=== PATIENT | female | born 1965 | race Caucasian/White ===

== ENCOUNTER → 2017-08-09 | Outpatient (CLI) | payer OTHER ==
[~2017-08-09] MED LIST: ATEN50TA PO; HYDR-3454 PO
== END ==
LOC: LAB 12:08
PROVIDERS: ATTEND Family Medicine
DX: B34.9 Viral infection, unspecified (principal)
CPT/HCPCS: 87804

== ENCOUNTER 2020-01-07 21:23 | Observation (INO) | payer OTHER ==
[~2020-01-07] VITALS: Ht 155 cm; Wt 96.0 kg
[~2020-01-07 21:23] MED LIST changes: -HYDR-3454 PO; +HYDR-3455 PO
--- NOTE | 2020-01-07 21:35 | ED GI ---
General Chief Complaint: Abdominal/GI Problems Stated Complaint: RLQ PAIN Source of Information: Patient Exam Limitations: No Limitations History of Present Illness Date Seen by Provider: Jan 07, 2020 Time Seen by Provider: 21:33 Initial Comments To ER with right lower quadrant abdominal pain that began last night as a dull ache and she had nausea yesterday. Nausea is gone today but the pain is more intense. She last ate a sandwich at about 5 PM this evening. No fevers or chills. Has irritable bowel syndrome and chronic diarrhea. Only abdominal surgery is history of cholecystectomy Timing/Duration: 1-2 Days Severity/Quality: Moderate Location: RLQ Radiation: RLQ Activities at Onset: None Associated Symptoms: Nausea/Vomiting Allergies and Home Medications Allergies Coded Allergies: NKANo Known Allergies (Verified Allergy, Unknown, 12/06/05) Home Medications Atenolol 50 Mg Tablet, 50 MG PO DAILY, (Reported) Hydrocodone/Acetaminophen 1 Each Tablet, 1 EACH PO Q4H PRN for PAIN Prescribed by: ELANA SULLIVAN on 04/22/15 9368 Patient Home Medication List Home Medication List Reviewed: Yes Review of Systems Review of Systems Constitutional: see HPI EENTM: No Symptoms Reported Respiratory: No Symptoms Reported Cardiovascular: See HPI Gastrointestinal: See HPI, Abdominal Pain, Diarrhea, Nausea Genitourinary: No Symptoms Reported Musculoskeletal: no symptoms reported Skin: no symptoms reported Psychiatric/Neurological: No Symptoms Reported Endocrine: No Symptoms Reported Hematologic/Lymphatic: No Symptoms Reported Past Diubjvn-Jsipvv-Tjyjkl Hx Patient Social History Recent Foreign Travel: No Contact w/Someone Who Travel: No Past Medical History Asthma Gall Bladder Disease Physical Exam Vital Signs Vital Signs - First Documented 01/07/20 21:28 Temp 36.6 Pulse 67 Resp 18 B/P (MAP) 169/89 (115) Pulse Ox 97 O2 Delivery Room Air Capillary Refill : Height/Weight/BMI Height: 5'1.50" Weight: 201lbs. oz. 91.430697qj; BMI Method: General Appearance: WD/WN, no apparent distress, obese Neck: non-tender, full range of motion Respiratory: no respiratory distress, no accessory muscle use Cardiovascular: regular rate, rhythm, no murmur Gastrointestinal: normal bowel sounds, soft, tenderness Extremities: normal range of motion, non-tender Neurologic/Psychiatric: alert, normal mood/affect, oriented x 3 Skin: normal color, warm/dry Progress/Results/Core Measures Results/Orders My Orders Orders - HIRO PÉREZ APRN Cbc With Automated Diff (01/07/20 21:26) Comprehensive Metabolic Panel (01/07/20 21:26) Ua Culture If Indicated (01/07/20 21:26) Ed Iv/Invasive Line Start (01/07/20 21:26) Ct Abd/Pelvis Wo(Kidney Stone) (01/07/20 21:26) Ketorolac Injection (Toradol Injection) (01/07/20 21:45) Medications Given in ED Current Medications Medications Dose Ordered Sig/Leann Route Start Time Stop Time Status Last Admin Dose Admin Ketorolac Tromethamine 15 mg ONCE ONCE IVP 01/07/20 21:45 01/07/20 21:46 DC 01/07/20 21:40 15 MG Vital Signs/I&O 01/07/20 21:28 Temp 36.6 Pulse 67 Resp 18 B/P (MAP) 169/89 (115) Pulse Ox 97 O2 Delivery Room Air Departure Impression Primary Impression: Appendicitis Qualified Codes: K35.30 - Acute appendicitis with localized peritonitis, without perforation or gangrene Disposition: ADMITTED INPATIENT Condition: Stable Admissions Decision to Admit Reason: Admit from ER (General) Decision to Admit/Date: Jan 07, 2020 Time/Decision to Admit Time: 21:49 Departure-Patient Inst. Referrals: CARLOS GARCIA MD (PCP/Family) Primary Care Physician HIRO PÉREZ APRN Jan 07, 2020 21:34
[2020-01-07] MEDS ORDERED: KETOROLAC 30 MG/ML VIAL IVP ONE (21:45)
[2020-01-07 21:51] LABS: BASOPHILS % (AUTO) 0 % (0-10); EOSINOPHILS # (AUTO) 0.3 10^3/uL (0.0-0.3); EOSINOPHILS % (AUTO) 2 % (0-10); HEMATOCRIT 43 % (35-52); LYMPHOCYTES # (AUTO) 2.8 X 10^3 (1.0-4.0); LYMPHOCYTES % (AUTO) 25 % (12-44); MEAN CORPUSCULAR HEMOGLOBIN 30 PG (25-34); MEAN CORPUSCULAR HGB CONC 32 G/DL (32-36); MEAN CORPUSCULAR VOLUME 91 FL (80-99); MEAN PLATELET VOLUME 10.7 FL (7.4-10.4); MONOCYTES # (AUTO) 1.1 X 10^3 (0.0-1.0); MONOCYTES % (AUTO) 10 % (0-12); NEUTROPHILS # (AUTO) 6.9 X 10^3 (1.8-7.8); NEUTROPHILS % (AUTO) 62 % (42-75); PLATELET COUNT 277 10^3/uL (130-400); RED CELL DISTRIBUTION WIDTH 12.9 % (10.0-14.5); WHITE BLOOD COUNT 11.1 10^3/uL (4.3-11.0)
[2020-01-07 21:52] LABS: BILIRUBIN,URINE NEGATIVE (NEGATIVE); CLARITY,URINE SL CLOUDY; COLOR,URINE YELLOW; GLUCOSE, URINE (UA) NEGATIVE (NEGATIVE); KETONES,URINE NEGATIVE (NEGATIVE); LEUKOCYTE ESTERASE ,URINE NEGATIVE (NEGATIVE); NITRITE,URINE NEGATIVE (NEGATIVE); PH,URINE 5.5 (5-9); PROTEIN,URINE NEGATIVE (NEGATIVE)
--- NOTE | 2020-01-07 21:54 | Diagnostic Imaging Report ---
PROCEDURE: CT urinary tract, rule out kidney stone. TECHNIQUE: Multiple contiguous axial images were obtained through the abdomen and pelvis without the use of intravenous contrast. Auto Exposure Controls were utilized during the CT exam to meet ALARA standards for radiation dose reduction. INDICATION: Right lower quadrant pain. FINDINGS: Heart size is normal. The lung bases are clear. Liver is normal in size and without focal lesions. Gallbladder is surgically absent. There is no biliary ductal dilatation. Spleen is normal. The pancreas and adrenal glands are unremarkable. Kidneys are normal in appearance. The aorta is nonaneurysmal. The appendix is dilated and inflamed compatible with acute appendicitis. There is no rupture. There is a questionable small appendicolith. Bowel gas pattern is otherwise nonspecific. There is no pelvic mass or adenopathy. There are degenerative changes in the spine. IMPRESSION: Findings compatible with acute unruptured appendicitis. Dictated by: Dictated on workstation # [id number]
[2020-01-07 22:01] LABS: BACTERIA,URINE LARGE /HPF; SQUAMOUS EPITHELIAL CELL,UR 25-50 /HPF; WBC,URINE 0-2 /HPF
[2020-01-07 22:05] LABS: ALANINE AMINOTRANSFERASE 31 U/L (0-55); ALBUMIN 4.5 GM/DL (3.2-4.5); ALKALINE PHOSPHATASE 60 U/L (40-136); BILIRUBIN,TOTAL 0.6 MG/DL (0.1-1.0); BUN/CREATININE RATIO 18; CALCIUM 9.5 MG/DL (8.5-10.1); CARBON DIOXIDE 25 MMOL/L (21-32); CHLORIDE 105 MMOL/L (98-107); CREATININE SERUM 0.85 MG/DL (0.60-1.30); GFR ESTIMATED > 60; GLUCOSE 104 MG/DL (70-105); SODIUM 141 MMOL/L (135-145); TOTAL PROTEIN 7.8 GM/DL (6.4-8.2)
--- NOTE | 2020-01-07 22:07 | NUR ---
Pt report called to IFTIKHAR Gonzalez from OR.
[2020-01-07] MEDS ORDERED: BUP/EPI 0.5% 1:200,000 (SENSORCAINE) 30 ML VIAL ONE (22:25)
--- NOTE | 2020-01-07 22:49 | History & Physical-Surgical ---
History of Present Illness History of Present Illness Reason for visit/HPI CC: rlq abd pain seen and evaluated in ED. Patient is a 54 year old femal who yesterday began having achy rlq quadrant abdominal pain. No radiation of pain. Moderate in intensity. Continued to worsen in severity. Had nausea yesterday, no emesis. Pain has continued today. Nothing makes better. Movement makes worse. [place] every bump in the road here. Patient denies n/v fever sweats chills shortness of breath or chest pain at this time. Patient had ct scan that i reviewed and consistent with acute appendicitis and appendicolith. Date of Admission T Date Seen by a Provider: Jan 07, 2020 Time Seen by a Provider: 22:43 I consulted on this patient on 01/07/20 22:43 Attending Physician Gio Mayer DO Admitting Physician Gigi Agrawal MD Consult Allergies and Home Medications Allergies Coded Allergies: NKANo Known Allergies (Verified Allergy, Unknown, 12/06/05) Home Medications Atenolol 50 Mg Tablet, 50 MG PO DAILY, (Reported) Hydrocodone/Acetaminophen 1 Each Tablet, 1 EACH PO Q4H PRN for PAIN Prescribed by: ELANA SULLIVAN on 04/22/15 1638 Patient Home Medication List Home Medication List Reviewed: Yes Past Dgthzkj-Xkcnrd-Gbfpin Hx Patient Social History Alcohol Use: Denies Use Recreational Drug Use: No Smoking Status: Never a Smoker 2nd Hand Smoke Exposure: No Recent Foreign Travel: No Contact w/Someone Who Travel: No Recent Infectious Disease Expo: No Surgeries History of Surgeries: Yes (right wrist fx, ) Surgeries: Gallbladder Respiratory History of Respiratory Disorde: Yes (mild asthma) Respiratory Disorders: Asthma Cardiovascular History of Cardiac Disorders: Yes Neurological History of Neurological Disord: Yes (had seizure when she was a child, not sure if they were febrile related) Gastrointestinal History of Gastrointestinal Di: Yes Gastrointestinal Disorders: Gall Bladder Disease Musculoskeletal History of Musculoskeletal Dis: No Endocrine History of Endocrine Disorders: No Cancer History of Cancer: No Psychosocial History of Psychiatric Problem: No Integumentary History of Skin or Integumenta: No Blood Transfusions History of Blood Disorders: No Reviewed Nursing Assessment Reviewed/Agree w Nursing PMH: Yes Family Medical History Significant Family History: No Pertinent Family Hx Review of Systems Constitutional: No chills, No fever, No weakness EENTM: No blurred vision, No double vision Respiratory: No cough, No dyspnea on exertion Cardiovascular: No chest pain, No edema Gastrointestinal: RLQ, abdominal pain (RLQ), nausea; No vomiting Genitourinary: No decreased output, No discharge Musculoskeletal: No back pain, No joint pain Skin: No change in color, No change in hair/nails Psychiatric/Neurological: Denies Anxiety, Denies Depressed, Denies Emotional Problems All Other Systems Reviewed Negative Unless Noted: Yes (Negative excepted noted.) Physical Exam Vital Signs Vital Signs - First Documented 01/07/20 21:28 Temp 36.6 Pulse 67 Resp 18 B/P (MAP) 169/89 (115) Pulse Ox 97 O2 Delivery Room Air Capillary Refill : Less Than 3 Seconds Height, Weight, BMI Height: 5'1.50" Weight: 201lbs. oz. 91.556303fb; 38.00 BMI Method: General Appearance: No Apparent Distress, WD/WN, Obese HEENT: PERRL/EOMI, Normal ENT Inspection Neck: Full Range of Motion, Normal Inspection, Non Tender, Supple Respiratory: Chest Non Tender, No Accessory Muscle Use, No Respiratory Distress Cardiovascular: Regular Rate, Rhythm, Normal Peripheral Pulses Gastrointestinal: Soft, Tenderness (right lower quadrant) Rectal: Deferred Back: No CVA Tenderness, No Vertebral Tenderness Extremity: Non Tender, No Calf Tenderness Neurologic/Psychiatric: Alert, Oriented x3, No Motor/Sensory Deficits, Normal Mood/Affect, tester operator II-XII Norm as Tested Skin: Normal Color, Warm/Dry Lymphatic: No Adenopathy Data Review Labs Laboratory Tests 01/07/20 21:30: White Blood Count 11.1H, Red Blood Count 4.75, Hemoglobin 14.0, Hematocrit 43, Mean Corpuscular Volume 91, Mean Corpuscular Hemoglobin 30, Mean Corpuscular Hemoglobin Concent 32, Red Cell Distribution Width 12.9, Platelet Count 277, Mean Platelet Volume 10.7H, Neutrophils (%) (Auto) 62, Lymphocytes (%) (Auto) 25, Monocytes (%) (Auto) 10, Eosinophils (%) (Auto) 2, Basophils (%) (Auto) 0, Neutrophils # (Auto) 6.9, Lymphocytes # (Auto) 2.8, Monocytes # (Auto) 1.1H, Eosinophils # (Auto) 0.3, Basophils # (Auto) 0.0, Sodium Level 141, Potassium Level 4.0, Chloride Level 105, Carbon Dioxide Level 25, Anion Gap 11, Blood Urea Nitrogen 15, Creatinine 0.85, Estimat Glomerular Filtration Rate > 60, BUN/Creatinine Ratio 18, Glucose Level 104, Calcium Level 9.5, Corrected Calcium 9.1, Total Bilirubin 0.6, Aspartate Amino Transf (AST/SGOT) 23, Alanine Aminotransferase (ALT/SGPT) 31, Alkaline Phosphatase 60, Total Protein 7.8, Al bumin 4.5 01/07/20 21:33: Urine Color YELLOW, Urine Clarity SL CLOUDY, Urine pH 5.5, Urine Specific [place] >=1.030, Urine Protein NEGATIVE, Urine Glucose (UA) NEGATIVE, Urine Ketones NEGATIVE, Urine Nitrite NEGATIVE, Urine Bilirubin NEGATIVE, Urine Urobilinogen 0.2, Urine Leukocyte Esterase NEGATIVE, Urine RBC (Auto) NEGATIVE, Urine RBC NONE, Urine WBC 0-2, Urine Squamous Epithelial Cells 25-50H, Urine Crystals NONE, Urine Bacteria LARGEH, Urine Casts NONE, Urine Mucus MODERATEH, Urine Culture Indicated YES Assessment/Plan Assessment/Plan Admission Diagonsis acute appendicitis with appendicolith rlq abdominal pain patient was discussed risks and benefits of laparoscopic appendectomy all other indicated procedures she understands and wishes to proceed to OR Admission Status: Observation Assessment/Plan acute appendicitis with appendicolith rlq abdominal pain patient was discussed risks and benefits of laparoscopic appendectomy all other indicated procedures she understands and wishes to proceed to OR GIO MAYER DO Jan 07, 2020 22:49
[2020-01-07] MEDS ORDERED: fentaNYL INJECTION 100 MCG/2 ML AMP ONE (22:51)
[2020-01-07] MEDS ORDERED: MIDAZOLAM 2 MG/2 ML (VERSED) VIAL ONE (22:51)
[2020-01-07] MEDS ORDERED: ceFAZolin INJECTION 2,000 MG ONE (22:59)
[2020-01-07] MEDS ORDERED: metroNIDAZOLE 500MG/100ML IVPB IV ONE (23:00)
[2020-01-07] MEDS ORDERED: LACTATED RINGERS 1,000 ML IV PRN ×2 (23:00→23:05)
[2020-01-07] MEDS ORDERED: NS (IVPB) 50 ML ONE (23:00)
[2020-01-07] MEDS ORDERED: ceFAZolin 2 GM IV Premixed 50 ML IV ONE (23:00)
[2020-01-07] MEDS ORDERED: SUCCINYLCHOLINE INJ 100 MG/5 ML SYR ONE (23:47)
[2020-01-07] MEDS ORDERED: proPOfol 200 MG/20 ML (DIPRIVAN) VIAL IV ONE (23:47)
[2020-01-07] MEDS ORDERED: LIDOCAINE PF 2% 5 ML (XYLOCAINE) VIAL ONE (23:47)
[2020-01-07] MEDS ORDERED: DEXAMETHASONE 10 MG/ML (DECADRON) 1 ML VIAL ONE (23:47)
[2020-01-07] MEDS ORDERED: ROCURONIUM 10 MG/ML 5 ML SYRINGE IV ONE (23:47)
[2020-01-07] MEDS ORDERED: SEVOFLURANE (ULTANE) 15 ML INHAL SOLN ONE (23:47)
[2020-01-07] MEDS ORDERED: ONDANSETRON 4 MG/2 ML (SDV) Z0FRAN ONE (23:47)
[2020-01-07] MEDS ORDERED: GLYCOPYRROLATE 0.2 MG/ML (ROBINUL) 2 ML VIAL ONE (23:49)
[2020-01-07] MEDS ORDERED: NEOSTIGMINE 3 MG/3 ML VIAL ONE (23:49)
[2020-01-07] MEDS ORDERED: LACTATED RINGERS 1,000 ML IV SCH (23:53)
--- NOTE | 2020-01-07 23:57 | Progress Note-Post Operative ---
Post-Operative Progess Note Surgeon (s)/Advertising Intern (s) Surgeon LAURITA MARTINEZ DO Advertising Intern: NA Pre-Operative Diagnosis ACUTE APPENDICITIS Post-Operative Diagnosis SAME Procedure & Operative Findings Date of Procedure 01/07/20 Procedure Performed/Findings PROCEDURE: Laparoscopic appendectomy. COMPLICATIONS: None. INDICATIONS: The patient is a 54 year old female who has been having right lower quadrant abdominal pain. Patient's exam consistent with appendicitis. I discussed risk and benefits of laparoscopic appendectomy and all indicated procedures with the possibility being a normal appendix. The patient understands the risks and benefits and wishes to proceed. Consent was signed on the chart. DESCRIPTION OF PROCEDURE: The patient was taken to the operating suite, prepped and draped in a sterile fashion. Timeout was performed. Local anesthetic was infiltrated just above the umbilicus and 11-blade scalpel was used to make a skin incision. Cautery was used to dissect down to the fascia and scored. Kochers were used to grasp and elevate it and the abdomen was then entered. A 0 Vicryl was placed in a [id number] fashion for closure at the end of the case. The balloon trocar was inserted into the abdomen and pneumoperitoneum was achieved. Under direct visualization of the laparoscope, a 5 mm trocar was placed in the suprapubic region and a 5 mm trocar was placed in the left lower quadrant. Appendix was located, rigid and inflamed with surrounding inflammatory response. The base of the appendix was dissected around. Once at the base an Endo-EVERETT 2.5 stapler was then fired across the base of the appendix. The mesoappendix was then divided. It was then placed in an Endobag and removed through the 12 mm trocar site. The abdomen was then irrigated and suctioned. No other pathology noted. The abdomen was then desufflated and the trocars were removed. The 0 Vicryl placed at the beginning of the case was then tied closing the 12 mm fascial defect. The skin was then closed using 4-0 Monocryl in a subcuticular fashion. The abdomen was then washed and dried and Skin Affix was placed over the incisions. The patient tolerated the procedure well without any complications and was taken to the recovery room in stable condition. Anesthesia Type general Estimated Blood Loss Estimated blood loss (mL): minimal Specimens/Packing Specimens Removed appendix LAURITA MARTINEZ DO Jan 07, 2020 23:57
[2020-01-08] VITALS (7 sets, daily range): BP systolic 102–179; BP diastolic 61–92
[2020-01-08] MEDS ORDERED: morphine INJ 4 MG/ML 1 ML (VIAL/SYRINGE) IVP PRN
[2020-01-08] MEDS ORDERED: HYDROcodone/APAP 5 MG/325 MG (LORTAB) TAB PO PRN
[2020-01-08] MEDS ORDERED: ONDANSETRON 4 MG/2 ML (SDV) Z0FRAN IV PRN
[2020-01-08] MEDS ORDERED: ONDANSETRON 4 MG/2 ML (SDV) Z0FRAN IVP PRN (00:30)
[2020-01-08] MEDS ORDERED: morphine INJ 10 MG/ML 1ML (SYR OR VIAL) IVP ONE (00:30)
--- OUTSIDE RECORDS SUMMARY | 2020-01-08 01:36 | XMS REPORT ---
Author Author [employer] business segment manager [email or web address] [facility] [employer] banner [email or web address] Address [address] [address] Care Team Providers Care Environmental Health Officer Name Role Phone EAGLE LOUIS L Unavailable LOUIS, EAGLE Unavailable Unavailable LOUIS, EAGLE Unavailable Unavailable LOUIS, EAGLE Unavailable Unavailable LOUIS, EAGLE Unavailable Unavailable LOUIS, EAGLE Unavailable Unavailable LOUIS, EAGLE Unavailable Unavailable EVAN ANDRE, PACHECO Livingston Unavailable Unavailable JOSE ANDRE, CARLOS Ortiz Unavailable Unavailable HREIBERTO ANDRE, EAGLE L Unavailable Unavailable LAURITA MARTINEZ DO Unavailable Unavailable YUSRA ANDRE, JOHNSON Kidd Unavailable Unavailable Unavailable Unavailable Unavailable Unavailable Unavailable Unavailable Unavailable Allergies The data below is from unstructured sources Allergen Type Severity Reaction Status Last Updated NKANo Known Allergies Allergy Unknown Active 12/06/05 Encounters Encounter Date Encounter Type Encounter Diagnosis Care Provider Facility Start: Patient encounter LAURITA MARTINEZ DO [facility] 01-07-2020 procedure [facility] Start: Emergency department JOHNSON MENG MD [facility] V ia [facility] 01-07-2020 patient visit [facility] Start: Encounter for PACHECO GORDON MD [facility] Via [facility] 08-22-2019 preprocedural [facility] cardiovascular ([id number]) examination Start: Patient encounter CARLOS GARCIA MD Not Availa ble ([id number]) 08-09-2017 procedure Start: Patient encounter CARLOS GARCIA MD [facility] 08-09-2017 procedure [facility] Start: Patient encounter [place] HERIBERTO [facility] Armida tang #1 01-18-2017 procedure of [facility] ([id number]) End: 01-19-2017 Start: Patient encounter EAGLE LOUIS Not Availab le ([id number]) 01-09-2017 procedure End: 01-10-2017 Start: Patient encounter PACHECO GORDON MD Not Avai lable ([id number]) 04-22-2015 procedure End: 04-22-2015 Start: Patient encounter PACHECO GORDON MD [facility] 04-22-2015 procedure [facility] End: 04-22-2015 Start: Patient encounter PACHECO GORDON MD [facility] [place] 04-20-2015 [facility] Start: Patient encounter EAGLE LOUIS MD [facility] [place] 04-15-2015 procedure [facility] ENCOUNTER FOR PACHECO GORDON MD Not Available ([phone]) PREPROCEDURAL CARDIOVASCUL Medical Equipment No Information Goals No Information Immunizations The data below is from unstructured sourcesNo immunization records. Interventions No Information Medications No Information Payers Date Payer Normalized Payer Policy ID [employer] Plan of Treatment The data below is from unstructured sources Discharge Date 04/22/15 5:50pm Instructions/Education Provided OLIVIA MAIN INSTRUCTIONS POSTOP Laparoscopic Cholecystectomy (DC) Prescriptions See Medication Section Problems Problem Problem Date Last Documented Episodic/Chr Provider Classificati Recorded Date onic on Abdominal Right upper quadrant pain 01-07-2020 Episodic EAGLE pain HERIBERTO ANDRE (3 sources) Biliary Calculus of gallbladder without 01-07-2020 Episodi c PACHECO tract cholecystitis without obstruction ; EVAN ANDRE disease Translations: [Calculus of (6 sources) gallbladder with chronic cholecystitis without obstruction] Essential Essential (primary) hypertension ; Chronic EAGLE hypertension Translations: [MALIGNANT ESSENTIAL HERIBERTO (4 sources) HYPERTENSION] Immunization Encounter for screening for other 01-07-2020 Epis odic PACHECO s and bacterial diseases EVAN ANDRE screening for infectious disease (3 sources) Other Diarrhea, unspecified 01-07-2020 Episodic CHAN EL gastrointest HERIBERTO ANDRE inal disorders (3 sources) Viral Viral infection, unspecified 01-07-2020 Episodic CARLOS JOSE infection (4 sources) Procedures No Information Results Test Name Value Interpreta Reference Facilit Date tion Range y Time not yet categorized on 2020-01-07 NAME: WEI ARCE ~MED REC#: [id number] Invalid PENDING ~ ~CARE PROVIDER: LAURITA Zuniga DO ~Post-Operative Progess tion Code N [facility] Note ~Surgeon (s)/Social Media Developer (s) ~Surgeon ([id number]) ~LAURITA MARTINEZ DO ~Social Media Developer: NA ~ ~Pre-Operative Diagnosis ~ACUTE APPENDI CITIS ~ ~Post-Operative Diagnosis ~ ~SAME ~ ~Procedure Operative Findings ~Date of Procedure ~01/07/20 ~Procedure Performed/Findings ~PROCEDURE: ~Laparos copic appendectomy. ~ ~COMPLICATIONS: ~None. ~ ~INDICATIONS: ~The patient is a 54 year old female who has been having right lower ~quadrant abdominal pain. Patient's exa m consistent with appendicitis. ~I discus sed risk and benefits of laparoscopic appendectomy ~and all indicated procedu res with the possibility being a normal cathi endix. ~The patient understands the risks and benefits and wishes to proceed. ~Consen t was signed on the chart. ~ ~DESCRIPTION OF PROCEDURE: ~The patient was taken to th e operating suite, prepped and draped in a sterile ~fashion. Timeout was performed . Local anesthetic was infiltrated just a abida ~the umbilicus and 11-blade scalpel was used to make a skin incision. Cautery ~was u sed to dissect down to the fascia and scored. Kochers were used to grasp ~and elevate it and the abdomen was then entered. A 0 V icryl was placed in a ~himzib-ga-[id number] fashio n for closure at the end of the case. The bal loon trocar ~was inserted into the abdomen a nd pneumoperitoneum was achieved. Under di rect ~visualization of the laparoscope, a 5 mm trocar was placed in the suprapubic ~re gion and a 5 mm trocar was placed in the lef t lower quadrant. Appendix was ~located, rigid and inflamed with surrounding inflammat ory response. The base of the appendix was ~dissected around. ~Once at the base an Endo-EVERETT 2.5 stapler was then fired acr oss the base of the appendix. ~The mesoappe ndix was then divided. It was then placed in an Endobag and removed through ~the 12 mm trocar site. The abdomen was then irrigated an d suctioned. No other pathology noted. ~T he abdomen was then desufflated and the tr ocars were removed. The 0 Vicryl placed at th e beginning ~of the case was then tied cl osing the 12 mm fascial defect. The skin was then ~closed using 4-0 Monocryl in a subcuti cular fashion. The abdomen was then ~washed a nd dried and Skin Affix was placed over th e incisions. The patient ~tolerated the procedure well without any complication s and was taken to the ~recovery room in stab le condition. ~Anesthesia Type ~general ~ ~Estimated Blood Loss ~Estimated blood loss (mL): minimal ~ ~Specimens/Packing ~Spe cimens Removed ~appendix ~ ~ ~ ~LUARITA MARTINEZ DO Jan 07, 2020 23:57 ~ ~ ~<Created by MAJO MARTINEZ DO> ~<Electronically signed by Cheryl MARTINEZ DO> 01/07/20 2357 ~ ~ laboratory on 2020-01-07 Albumin [Mass/Vol] 4.5 g/dL Negative 3.2-4.5 PENDING - 5-2 g/dL [facility] 020 N [facility] 17:30-0 ([id number]) 400 ALP [Catalytic 60 U/L Negative 40-136 U/L PENDING 01-06-2 activity/Vol] [facility]IO 020 N [facility] 17:30-0 ([id number]) 400 ALT [Catalytic 31 U/L Negative 0-55 U/L PENDING -15-2 activity/Vol] [facility] 020 N [facility] 17:30-0 ([id number]) 400 Anion gap 11 mmol/L Negative 5-14 PENDING 01-06-2 [Moles/Vol] mmol/L [facility] 020 N [facility] 17:30-0 ([id number]) 400 AST [Catalytic 23 U/L Negative 5-34 U/L PENDING -15-2 activity/Vol] [facility] 020 N [facility] 17:30-0 ([id number]) 400 Bacteria LM Ql LARGE Abnormal PENDING 2 (Urine sed) [facility] 020 N [facility] 17:33-0 ([id number]) 400 Basophils (Bld) 0.0 10*3/uL Negative 0.0-0.1 PENDING -15 -2 [#/Vol] 10*3/uL [facility] 020 N [facility] 17:30-0 ([id number]) 400 Basophils/100 WBC 0 % Negative 0-10 % PENDING 01-06 -2 (Bld) [facility] 020 N [facility] 17:30-0 ([id number]) 400 Bilirubin [Mass/Vol] 0.6 mg/dL Negative 0.1-1.0 PENDING 07 -15-2 mg/dL [facility] 17:30-0 ([id number]) 400 Bilirubin Ql (U) Negative Invalid NEGATIVE PENDING Interpreta LOCATIO 020 tion Code N [facility] 17:33-0 ([id number]) 400 Calcium [Mass/Vol] 9.5 mg/dL Negative 8.5-10.1 PENDING 07-1 5-2 mg/dL [facility] 020 [facility] 17:30-0 ([id number]) 400 Calcium [Mass/Vol] 9.1 mg/dL Negative 8.5-10.1 PENDING 07-1 5-2 mg/dL [facility] 020 [facility] 17:30-0 ([id number]) 400 Casts LM Ql (Urine NONE Invalid PENDING sed) Interpreta LOCATIO 020 tion Code N [facility] 17:33-0 ([id number]) 400 Chloride [Moles/Vol] 105 mmol/L Negative 98-107 PENDING 0 -15-2 mmol/L LOC[facility]IO 020 [facility] 17:30-0 ([id number]) 400 Clarity (U) SL CLOUDY Invalid PENDING Interpreta LOCATIO 020 tion Code N [facility] 17:33-0 ([id number]) 400 CO2 [Moles/Vol] 25 mmol/L Negative 21-32 PENDING 01-06-2 mmol/L [facility] 020 [facility] 17:30-0 ([id number]) 400 Color (U) YELLOW Invalid PENDING Interpreta LOC[facility]IO 020 tion Code N [facility] 17:33-0 ([id number]) 400 Creatinine 0.85 mg/dL Negative 0.60-1.30 PENDING 01-06-2 [Mass/Vol] mg/dL [facility] 020 [facility] 17:30-0 ([id number]) 400 Creatinine and > Invalid PENDING Glomerular Interpreta LOCATIO 020 filtration tion Code N [facility] 17:30-0 rate.predicted panel ([id number]) 400 - Serum, Plasma or Blood Crystals LM Ql NONE Invalid PENDING (Urine sed) Interpreta LOCATIO 020 tion Code N [facility] 17:33-0 ([id number]) 400 Eosinophils (Bld) 0.3 10*3/uL Negative 0.0-0.3 PENDING [#/Vol] 10*3/uL [facility] 020 [facility] 17:30-0 ([id number]) 400 Eosinophils/100 WBC 2 % Negative 0-10 % PENDING (Bld) [facility] 020 [facility] 17:30-0 ([id number]) 400 Epithelial 25-50 Abnormal PENDING cells.squamous LM Ql LOCATIO 020 (Urine sed) N [facility] 17:33-0 ([id number]) 400 Erythrocyte 12.9 % Negative 10.0-14.5 PENDING distribution width % LOC[facility]IO 020 (RBC) [Ratio] N [facility] 17:30-0 ([id number]) 400 Glucose [Mass/Vol] 104 mg/dL Negative 70-105 PENDING 12-23 5-2 mg/dL [facility] 020 [facility] 17:30-0 ([id number]) 400 Glucose Auto test Negative Invalid NEGATIVE PENDING 01-06 strip Ql (U) Interpreta LOCATIO 020 tion Code N [facility] 17:33-0 ([id number]) 400 HCG.beta subunit (U) Negative Invalid NEGATIVE PENDING [Moles/Vol] Interpreta LOCATIO 020 tion Code N [facility] 17:33-0 ([id number]) 400 Hematocrit (Bld) 43 % Negative 35-52 % PENDING [Volume fraction] [facility] 020 [facility] 17:30-0 ([id number]) 400 Hemoglobin (Bld) 14.0 g/dL Negative 11.5-16.0 PENDING [Mass/Vol] g/dL [facility] 020 [facility] 17:30-0 ([id number]) 400 Ketones Auto test Negative Invalid NEGATIVE PENDING 01-06 strip Ql (U) Interpreta LOCATIO 020 tion Code N [facility] 17:33-0 ([id number]) 400 Leukocyte esterase Negative Invalid NEGATIVE PENDING 12-23 5-2 Test strip Ql (U) Interpreta LOCATIO 020 tion Code N [facility] 17:33-0 ([id number]) 400 Lymphocytes (Bld) 2.8 10*3/uL Negative 1.0-4.0 PENDING [#/Vol] 10*3 [facility] 020 [facility] 17:30-0 ([id number]) 400 Lymphocytes/100 WBC 25 % Negative 12-44 % PENDING (Bld) MAHI Clark [facility] 17:30-0 ([id number]) 400 MCH (RBC) [Entitic 30 pg Negative 25-34 pg PENDING 12-23 mass] [facility] 17:30-0 ([id number]) 400 MCHC (RBC) 32 g/dL Negative 32-36 g/dL PENDING [Mass/Vol] [facility] 17:30-0 ([id number]) 400 MCV (RBC) [Entitic 91 Negative 80-99 PENDING 12-23 vol] [foz_us] MAHI Clark [facility] 17:30-0 ([id number]) 400 Monocytes (Bld) 1.1 10*3/uL High 0.0-1.0 PENDING 01-06 [#/Vol] 10*3 [facility] Eduardo [facility] 17:30-0 ([id number]) 400 Monocytes/100 WBC 10 % Negative 0-12 % PENDING 01-06 (Bld) [facility] 17:30-0 ([id number]) 400 Mucus Ql (Urine sed) MODERATE Abnormal PENDING 01-06 [facility] 17:33-0 ([id number]) 400 Neutrophils (Bld) 6.9 10*3/uL Negative 1.8-7.8 PENDING [#/Vol] 10*3 [facility] 17:30-0 ([id number]) 400 Neutrophils/100 WBC 62 % Negative 42-75 % PENDING (Bld) LOC[facility]IO Eduardo [facility] 17:30-0 ([id number]) 400 Nitrite Ql (U) Negative Invalid NEGATIVE PENDING Interpreta LOCATIO Eduardo tion Code [facility] 17:33-0 ([id number]) 400 pH (U) 5.5 [pH] Invalid 5-9 PENDING Interpreta LOCATIO 020 tion Code [facility] 17:33-0 ([id number]) 400 Platelet mean volume 10.7 High 7.4-10.4 PENDING (Bld) [Entitic vol] [foz_us] [facility] 020 N [facility] 17:30-0 ([id number]) 400 Platelets (Bld) 277 10*3/uL Negative 130-400 PENDING 01-06 [#/Vol] 10*3/uL [facility] 020 N [facility] 17:30-0 ([id number]) 400 Potassium 4.0 mmol/L Negative 3.6-5.0 PENDING [Moles/Vol] mmol/L LOC[facility]IO 020 N S 17:30-0 ([id number]) 400 Protein [Mass/Vol] 7.8 g/dL Negative 6.4-8.2 PENDING 12-23 5-2 g/dL LOC[facility]IO 020 N S 17:30-0 ([id number]) 400 Protein Ql (U) Negative Invalid NEGATIVE PENDING Interpreta [facility] 020 tion Code N [facility] 17:33-0 ([id number]) 400 RBC (Bld) [#/Vol] 4.75 10*6/uL Negative 4.35-5.85 PENDING 10*6/uL [facility] 020 N [facility] 17:30-0 ([id number]) 400 RBC LM.HPF (Urine NONE Invalid PENDING sed) [#/Area] Interpreta [facility] 020 tion Code N [facility] 17:33-0 ([id number]) 400 RBC Ql (U) Negative Invalid NEGATIVE PENDING Interpreta [facility] 020 tion Code N [facility] 17:33-0 ([id number]) 400 Sodium [Moles/Vol] 141 mmol/L Negative 135-145 PENDING mmol/L [facility] 020 [facility] 17:30-0 ([id number]) 400 Specific gravity (U) >= Invalid 1.016-1.02 PENDING 0 [Rel density] Interpreta 2 [facility] 020 tion Code N [facility] 17:33-0 ([id number]) 400 Urea nitrogen 15 mg/dL Negative 7-18 mg/dL PENDING [Mass/Vol] LOC[facility]IO 020 N S 17:30-0 ([id number]) 400 Urea 18 mg/mg Invalid PENDING 07-15-2 nitrogen/Creatinine Interpreta LOCATIO 020 [Mass ratio] tion Code N [facility] 17:30-0 ([id number]) 400 Urinalysis complete YES Invalid PENDING W Reflex Culture Interpreta LOC[facility] 020 panel - Urine tion Code N [facility] 17:33-0 ([id number]) 400 Urobilinogen (U) 0.2 mg/dL Invalid < = 1.0 PENDING [Mass/Vol] Interpreta mg/dL [facility] 020 tion Code N [facility] 17:33-0 ([id number]) 400 WBC (Bld) [#/Vol] 11.1 10*3/uL High 4.3-11.0 PENDING 10*3/uL [facility] 020 [facility] 17:30-0 ([id number]) 400 WBC LM.HPF (Urine Invalid PENDING sed) [#/Area] Interpreta LOC[facility]IO 020 tion Code N [facility] 17:33-0 ([id number]) 400 laboratory on 2017-01-09 Albumin BCG dye 4.4 Invalid 3.6-5.1 Not [Mass/Vol] Interpreta g/dL Avail[facility] 017 tion Code le 09:20-0 ([id number]) 400 ALP [Catalytic 53 U/L Invalid 35-130 U/L Not activity/Vol] Interpreta Availab 017 tion Code le 09:20-0 ([id number]) 400 ALT [Catalytic 27 U/L Invalid 6-45 U/L Not activity/Vol] Interpreta Availab 017 tion Code le 09:20-0 ([id number]) 400 Anion gap 15 mmol/L High 6-14 Not [Moles/Vol] Availab 017 le 09:20-0 ([id number]) 400 AST [Catalytic 25 U/L Invalid 2-40 U/L Not activity/Vol] Interpreta Availab 017 tion Code le 09:20-0 ([id number]) 400 Bilirubin [Mass/Vol] 0.9 mg/dL Invalid 0.2-1.2 Not Interpreta mg/dL Availab 017 tion Code le 09:20-0 ([id number]) 400 Calcium [Mass/Vol] 9.7 mg/dL Invalid 8.3-10.4 Not - 8-2 Interpreta mg/dL Avail[facility] 017 tion Code le 09:20-0 ([id number]) 400 Chloride [Moles/Vol] 105 mmol/L Invalid 95-114 Not 0 7-18-2 Interpreta mmol/L Availab 017 tion Code le 09:20-0 ([id number]) 400 Cholesterol 227 mg/dL Invalid 100-240 Not 18-2 [Mass/Vol] Interpreta mg/dL Avail[facility] 017 tion Code le 09:20-0 ([id number]) 400 Cholesterol in HDL 62 mg/dL Invalid 30-85 Not - 8-2 [Mass/Vol] Interpreta mg/dL Avail[facility] 017 tion Code le 09:20-0 (75689) 400 Cholesterol in LDL 147 mg/dL High 0-100 Not 07-1 8-2 [Mass/Vol] mg/dL Availab 017 le 09:20-0 ([id number]) 400 Cholesterol in VLDL 18 mg/dL Invalid 0-42 mg/dL Not 18-2 [Mass/Vol] Interpreta Availab 017 tion Code le 09:20-0 ([id number]) 400 Cholesterol.total/Ch 3.7 {ratio} Invalid 3.7-6.7 Not 01-09-2 olesterol in HDL Interpreta Availab 017 [Mass ratio] tion Code le 09:20-0 (06060) 400 Creatinine 0.74 mg/dL Invalid 0.50-1.50 Not 18-2 [Mass/Vol] Interpreta mg/dL Avail[facility] 017 tion Code le 09:20-0 ([id number]) 400 GFR/1.73 sq 83 mL/min/{1.73_m2} Invalid >59 Not 0 -18-2 M.predicted MDRD Interpreta mL/min/1.7 Availab 017 (S/P/Bld) [Vol tion Code 3m2 le 09:20-0 rate/Area] ([id number]) 400 Globulin (S) 3.1 g/dL Invalid 2.3-3.5 Not 18-2 [Mass/Vol] Interpreta g/dL Availab 017 tion Code le 09:20-0 ([id number]) 400 Glucose [Mass/Vol] 103 mg/dL Invalid 70-110 Not - 8-2 Interpreta mg/dL Availab 017 tion Code le 09:20-0 (21562) 400 HCO3 (P) [Moles/Vol] 25 Invalid 22-33 Not 2 Interpreta mEq/L Avail[facility] 017 tion Code le 09:20-0 ([id number]) 400 Osmolality Calc 289 Invalid 280-295 Not 01-09-2 [Osmolality] Interpreta Availab 017 tion Code le 09:20-0 ([id number]) 400 Potassium 4.6 mmol/L Invalid 3.5-5.3 Not 01-09-2 [Moles/Vol] Interpreta mmol/L Availab 017 tion Code le 09:20-0 (53952) 400 Protein [Mass/Vol] 7.5 g/dL Invalid 6.0-8.3 Not - 8-2 Interpreta g/dL Avail[facility] 017 tion Code le 09:20-0 (85920) 400 Sodium [Moles/Vol] 140 mmol/L Invalid 134-148 Not Interpreta mmol/L Availab 017 tion Code le 09:20-0 (60744) 400 Triglyceride 88 mg/dL Invalid 35-160 Not 01-09-2 [Mass/Vol] Interpreta mg/dL Availab 017 tion Code le 09:20-0 (40113) 400 Urea nitrogen 13 mg/dL Invalid 5-25 mg/dL Not 01-09-2 [Mass/Vol] Interpreta Availab 017 tion Code le 09:20-0 ([id number]) 400 Social History No Information Vital Signs The data below is from unstructured sources Vital Response Date/Time Temperature (Fahrenheit) 97.2 degree s F (97.6 - 99.5) 04/22/2015 5:48pm Temperature (Calculated Celsius) 36. 56586 degrees C (36.4 - 37.5) 04/22/2015 5:30pm Temperature Source Tympanic 04/22/2015 5:48pm Pulse Rate (adult) 60 bpm (60 - 90) 04/22/2015 5:48pm Respiratory Rate 18 bpm (12 - 24) 04/22/2015 5:48pm O2 Sat by Pulse Oximetry 93 % (88 - 100) 04/22/2015 5:48pm Blood Pressure 158/94 mm Hg 04/22/2015 5:48pm Pain Pain Intensity 5 2014 5:30pm Pain Intensity 6 2014 5:30pm Height (Feet) 5 feet 11:46am Height (Inches) 1.50 inches 04/22/2015 11:46am Height (Calculated Centimeters) 156. 527283 cm 04/22/2015 11:46am Weight (Pounds) 201 pounds 04/22/2015 11:46am Weight (Calculated Grams) 31897.067 gm 04/22/2015 11:46am Weight (Calculated Kilograms) 91.172 067 kilograms 04/22/2015 11:46am Calculated BMI 33.44 11:46am Functional Status The data below is from unstructured sourcesNo functional status results. Mental Status No Information Advance Directives Directive Response Recor ded Date/Time Advance Directives No 11:46am Health Care Power of Cloud Consultant No 04/22/15 11:46am Organ Donor No 04/22/15 11:46am Resuscitation Status Full Code 04/22/15 11:46am Additional Source Comments This clinical document has been generated using [employer] software that has been certified by the Office of the National Coordinator for Health Information Technology (ONC 15.99.04.3023.Diam.31.00.0.368325) and the National Committee for Outdoor Education Teacher (NCQA, as an eMeasure certified technology). FOR RECORDS PERTAINING TO PATIENTS WHO ARE OR HAVE BEEN ENROLLED IN A CHEMICAL D EPENDENCY/SUBSTANCE ABUSE PROGRAM, SOME INFORMATION MAY BE OMITTED. This clinica l summary was aggregated from multiple sources. Caution should be exercised in using it in the provision of clinical care. This summary normalizes information from multiple sources, and as a consequence, information in this document may ma terially change the coding, format and clinical context of patient data. In art tion, data may be omitted in some cases. CLINICAL DECISIONS SHOULD BE BASED ON T HE PRIMARY CLINICAL RECORDS. [employer] provides no warranty or guara ntee of the accuracy or completeness of information in this document.The followi ng information is based on time limited clinical information
--- OUTSIDE RECORDS SUMMARY | 2020-01-08 01:37 | XMS REPORT | Continuity of Care Document ---
Author Organization Unknown Address Unknown Phone Unavailable Allergies Active Description Code Type Severity Reaction Onset Reported/Identified Relationship to Patient Clinical Status Yes NO KNOWN DRUG ALLERGIES UNKNOWN UNKNOWN Yes NKANo Known Allergies NKA Miscellaneous Allergy Unknown N/A 12/06/2005 Medications There is no data. Problems Date Dx Coded Attending Type Code Diagnosis Diagnosed By 01/17/2011 Ot 692.71 04/22/2015 EVAN ANDRE, PACHECO Livingston Ot K80.10 CALCULUS OF GALLBLADDER W CHRONIC CHOLEC 04/29/2015 HERIBERTO ANDRE, EAGLE Her Ot R10.11 04/29/2015 HERIBERTO ANDRE, EAGLE Her Ot R19.7 05/06/2015 EVAN ANDRE, PACHECO [place] Ot K80.20 05/06/2015 EVAN ANDRE, PACHECO [place] Ot Z01.810 05/06/2015 EVAN ANDRE, PACHECO [place] Ot Z11.2 01/18/2017 W 401.0 JAZMYNE GNANT ESSENTIAL HYPERTENSION 01/18/2017 W I10 ESSENT IAL (PRIMARY) HYPERTENSION 08/09/2017 HERIBERTO ANDRE, EAGLE Her Ot R10.11 RIGHT UPPER QUADRANT PAIN 08/09/2017 HERIBERTO ANDRE, EAGLE Her Ot R19.7 DIARRHEA, UNSPECIFIED 08/09/2017 EVAN ANDRE, PACHECO Living[place] Ot K80.20 CALCULUS OF GALLBLADDER W/O CHOLECYSTITI 08/09/2017 EVAN ANDRE, PACHECO Livingston Ot Z01.810 ENCOUNTER FOR PREPROCEDURAL CARDIOVASCUL 08/09/2017 EVAN ANDRE, PACHECO [place] Ot Z11.2 ENCOUNTER FOR SCREENING FOR OTHER BACTER 08/10/2017 JOSE ANDRE, CARLOS Ortiz Ot B34. 9 VIRAL INFECTION, UNSPECIFIED 08/28/2017 JOSE ANDRE, CARLOS Ortiz Ot B34. 9 VIRAL INFECTION, UNSPECIFIED 08/22/2019 HERIBERTO ANDRE, EAGLE L Ot R10.11 RIGHT UPPER QUADRANT PAIN 08/22/2019 HERIBERTO ANDRE, EAGLE Her Ot R19.7 DIARRHEA, UNSPECIFIED 08/22/2019 EVAN ANDRE, PACHECO Livingston Ot K80.20 CALCULUS OF GALLBLADDER W/O CHOLECYSTITI 08/22/2019 EVAN ANDRE, PACHECO Living[place] Ot Z01.810 ENCOUNTER FOR PREPROCEDURAL CARDIOVASCUL 08/22/2019 EVAN ANDRE, PACHECO Living[place] Ot Z11.2 ENCOUNTER FOR SCREENING FOR OTHER BACTER 08/22/2019 JOSE ANDRE, CARLOS Ortiz Ot B34. 9 VIRAL INFECTION, UNSPECIFIED Procedures There is no data. Results Test Result Range Lipid Panel - 01/09/17 08:20 C/HDL 3.7 3.7-6.7 Cholesterol 227 mg/dL 100-240 HDL 62 mg/dL 30-85 LDL-Calculated 147 mg/dL 0-100 Trig 88 mg/dL 35-160 VLDL 18 mg/dL 0-42 Influenza virus A and B antigen detectio n - 08/09/17 12:13 FLU RESULT NEGATIVE FOR INFLUENZA A AND B ANTIGENS BY IA [facility] Complete blood count (CBC) with automate d white blood cell (WBC) differential - 01/07/20 21:30 Blood leukocytes automated count (number/volume) 11.1 10*3/uL 4.3-11.0 Blood erythrocytes automated count (number/volume) 4.75 10*6/uL 4.35-5.85 Venous blood hemoglobin measurement (mass/volume) 14.0 g/dL 11.5-16.0 Blood hematocrit (volume fraction) 43 % 35-52 Automated erythrocyte mean corpuscular volume 91 [ foz_us] 80-99 Automated erythrocyte mean corpuscular h emoglobin (mass per erythrocyte) 30 pg 25-34 Automated erythrocyte mean corpuscular h emoglobin concentration measurement (mass/volume) 32 g/dL 32-36 Automated erythrocyte distribution width ratio 12. 9 % 10.0- 14.5 Automated blood platelet count (count/volume) 277 10*3/uL 130-400 Automated blood platelet mean volume measurement 10.7 [foz_us] 7.4-10.4 Automated blood neutrophils/100 leukocytes 62 % 42-75 Automated blood lymphocytes/100 leukocytes 25 % 12-44 Blood monocytes/100 leukocytes 10 % 0-12 Automated blood eosinophils/100 leukocytes 2 % 0-10 Automated blood basophils/100 leukocytes 0 % 0-10 Blood neutrophils automated count (number/volume) 6.9 10*3 1.8-7.8 Blood lymphocytes automated count (number/volume) 2.8 10*3 1.0-4.0 Blood monocytes automated count (number/volume) 1. 1 10*3 0.0-1.0 Automated eosinophil count 0.3 10*3/uL 0 .0-0.3 Automated blood basophil count (count/volume) 0.0 10*3/uL 0.0-0.1 Comprehensive metabolic panel - 01/07/20 21:30 Serum or plasma sodium measurement (moles/volume) 141 mmol/L 135-145 Serum or plasma potassium measurement (moles/volume) 4.0 mmol/L 3.6-5.0 Serum or plasma chloride measurement (moles/volume) 105 mmol/L 98-107 Carbon dioxide 25 mmol/L 21-32 Serum or plasma anion gap determination (moles/volume) 11 mmol/L 5-14 Serum or plasma urea nitrogen measurement (mass/volume ) 15 mg/dL 7-18 Serum or plasma creatinine measurement (mass/volume) 0.85 mg/dL 0.60-1.30 Serum or plasma urea nitrogen/creatinine mass ratio 18 NRG Serum or plasma creatinine measurement w ith calculation of estimated glomerular filtration rate > NRG Serum or plasma glucose measurement (mass/volume) 104 mg/dL 70-105 Serum or plasma calcium measurement (mass/volume) 9.5 mg/dL 8.5-10.1 Serum or plasma total bilirubin measurement (mass/volu me) 0.6 mg/dL 0.1-1.0 Serum or plasma alkaline phosphatase alejandro surement (enzymatic activity/volume) 60 U/L 40-136 Serum or plasma aspartate aminotransfera se measurement (enzymatic activity/volume) 23 U/L 5-34 Serum or plasma alanine aminotransferase measurement (enzymatic activity/volume) 31 U/L 0-55 Serum or plasma protein measurement (mass/volume) 7.8 g/dL 6.4-8.2 Serum or plasma albumin measurement (mass/volume) 4.5 g/dL 3.2-4.5 CALCIUM CORRECTED 9.1 mg/dL 8.5-10.1 Complete urinalysis with reflex to cultu re - 01/07/20 21:33 Urine color determination YELLOW NRG Urine clarity determination SL CLOUDY N RG Urine pH measurement by test strip 5.5 5-9 Specific gravity of urine by test strip >= 1.016-1.022 Urine protein assay by test strip, semi-quantitative NEGATIVE NEGATIVE Urine glucose detection by automated test strip NE GATIVE NEGATIVE Erythrocytes detection in urine sediment by light micr oscopy NEGATIVE NEGATIVE Urine ketones detection by automated test strip NE GATIVE NEGATIVE Urine nitrite detection by test strip NEGATIVE NEGATIVE Urine total bilirubin detection by test strip NEGA TIVE NEGATIVE Urine urobilinogen measurement by automated test strip (mass/volume) 0.2 mg/dL < = 1.0 Urine leukocyte esterase detection by dipstick NEG ATIVE NEGATIVE Automated urine sediment erythrocyte cou nt by microscopy (number/high power field) NONE NRG Automated urine sediment leukocyte count by microscopy (number/high power field) [HPF] NRG Bacteria detection in urine sediment by light microsco py LARGE NRG Squamous epithelial cells detection in u rine sediment by light microscopy 25-50 NRG Crystals detection in urine sediment by light microsco py NONE NRG Casts detection in urine sediment by light microscopy NONE NRG Mucus detection in urine sediment by light microscopy MODERATE NRG Complete urinalysis with reflex to culture YES NRG Urine beta human chorionic gonadotropin (hCG) measurement - 01/07/20 21:33 Urine beta human chorionic gonadotropin (hCG) measurem ent NEGATIVE NEGATIVE Encounters ACCT No. Visit Date/Time Discharge Status Pt. Type Provider Facility Loc./Unit Complaint [id number] 01/09/2017 13:14:00 01/09/2017 23:59: 00 DIS Outpatient EAGLE LOUIS [id number] 01/18/2017 15:30:00 Document Registration [id number] 08/09/2017 12:08:00 23:59:59 CLS Outpatient CARLOS GARCIA MD Via [facility] LAB B34.9 [id number] 04/22/2015 11:25:00 17:50:00 DIS Outpatient PACHECO GORDON MD Via [facility] SDC GALL[place]ONES [id number] 04/20/2015 08:36:00 23:59:59 CLS Outpatient PACHECO GORDON MD Via [facility] PREOP GALL[place]ONES [id number] 04/15/2015 06:51:00 23:59:59 CLS Outpatient EAGLE LOUIS MD [facility] RAD RUQ PAIN, DIARRHEA [id number] 01/07/2020 21:25:[address] Emergency HIRO PÉREZ APRN [facility] ER RLQ PAIN [id number] 01/17/2011 12:56:00 Document Registration
[2020-01-08] MEDS: LACTATED RINGERS 1,000 ML IV SCH ×2 (02:00→07:00)
--- OUTSIDE RECORDS SUMMARY | 2020-01-08 02:52 | XMS REPORT | Continuity of Care Document ---
[...] INFLUENZA A AND B ANTIGENS BY IA [facility] Complete blood count (CBC) with automate d [...] Status Pt. Type Provider Facility Loc./Unit Complaint [id number] 01/09/2017 13:14:00 01/09/2017 23:59: 00 DIS Outpatient [facility] [id number] 01/18/2017 15:30:00 Document Registration [id number] 08/09/2017 12:08:00 23:59:59 CLS Outpatient CARLOS GARCIA MD Via [facility] LAB B34.9 [id number] 04/22/2015 11:25:00 17:50:00 DIS Outpatient PACHECO GORDON MD [facility] SDC GALLSTONES [id number] 04/20/2015 08:36:00 23:59:59 CLS Outpatient PACHECO GORDON MD [facility] PREOP GALLSTONES [id number] 04/15/2015 06:51:00 23:59:59 CLS Outpatient EAGLE LOUIS MD Via [facility] RAD RUQ PAIN, DIARRHEA [id number] 01/07/2020 21:25:[address] Emergency HIRO PÉREZ APRN [facility] ER RLQ PAIN [id number] 01/17/2011 12:56:00 Document Registration
--- OUTSIDE RECORDS SUMMARY | 2020-01-08 02:52 | XMS REPORT ---
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 Phone EAGLE LOUIS L Unavailable LOUIS, EAGLE Unavailable Unavailable LOUIS, EAGLE Unavailable Unavailable LOUIS, EAGLE Unavailable Unavailable LOUIS, EAGLE Unavailable Unavailable LOUIS, EAGLE Unavailable Unavailable LOUIS, EAGLE Unavailable Unavailable EVAN ANDRE, PACHECO Living[place] Unavailable Unavailable JOSE ANDRE, CARLOS Ortiz Unavailable Unavailable HERIBERTO ANDRE, EAGLE L Unavailable Unavailable LAURITA MARTINEZ DO Unavailable Unavailable YUSRA ANDRE, JOHNSON Kidd Unavailable Unavailable Unavailable Unavailable Unavailable Unavailable Unavailable Unavailable Unavailable Allergies The data below is from unstructured sources Allergen Type Severity Reaction Status Last Updated NKANo Known Allergies Allergy Unknown Active 12/06/05 Encounters Encounter Date Encounter Type Encounter Diagnosis Care Provider Facility Start: Patient encounter LAURITA MARTINEZ DO [facility] 01-07-2020 procedure [facility] Start: Emergency department JOHNSON MENG MD [facility] V ia [facility] 01-07-2020 patient visit [facility] Start: Encounter for PACHECO GORDON MD [facility] 08-22-2019 preprocedural [facility] cardiovascular ([id number]) examination Start: Patient encounter CARLOS GARCIA MD Not [facility] ([id number]) 08-09-2017 procedure Start: Patient encounter CARLOS GARCIA MD [facility] 08-09-2017 procedure [facility] Start: Patient encounter [facility] HERIBERTO [facility] Armida tang #1 01-18-2017 procedure of [facility] ([id number]) End: 01-19-2017 Start: Patient encounter E[facility]LE LOUIS Not Availab [facility] ([id number]) 01-09-2017 procedure End: 01-10-2017 Start: Patient encounter PACHECO GORDON MD Not Avai [facility]able ([id number]) 04-22-2015 procedure End: 04-22-2015 Start: Patient encounter PACHECO GORDON MD [facility] [place] 04-22-2015 procedure [facility] End: 04-22-2015 Start: Patient encounter PACHECO GORDON MD [facility] [place] 04-20-2015 [facility] Start: Patient encounter EAGLE LOUIS MD [facility] [place] 04-15-2015 procedure [facility] ENCOUNTER FOR PACHECO GORDON MD Not [...] PACHECO tract cholecystitis without obstruction ; EVAN NADRE disease Translations: [Calculus of (6 sources) gallbladder [...] on 2020-01-07 NAME: WEI ARCE ~MED REC#: [id number] Invalid PENDING ~ ~CARE PROVIDER: LAURITA Zuniga DO ~Post-Operative Progess tion Code N [facility] Note ~Surgeon (s)/Machine Maintenance Repairer (s) ~Surgeon ([id number]) ~LAURITA MARTINEZ DO ~Machine Maintenance Repairer: NA ~ ~Pre-Operative Diagnosis ~ACUTE APPENDI CITIS [...] 0 V icryl was placed in a ~[id number] fashio n for closure at the end [...] ~Spe cimens Removed ~appendix ~ ~ ~ ~LAURITA MARTINEZ DO Jan 07, 2020 23:57 ~ ~ ~<Created by MAJO MARTINEZ DO> ~<Electronically signed by Cheryl MARTINEZ DO> 01/07/20 2357 ~ ~ laboratory on 2020-01-07 Albumin [Mass/Vol] 4.5 g/dL Negative 3.2-4.5 PENDING - 5-2 g/dL [facility] 020 N [facility] 17:30-0 ([id number]) 400 ALP [Catalytic 60 U/L Negative 40-136 U/L PENDING 01-06-2 activity/Vol] [facility] 020 N [facility] 17:30-0 ([id number]) 400 ALT [Catalytic 31 U/L Negative 0-55 U/L PENDING -15-2 activity/Vol] [facility] 020 N [facility] 17:30-0 ([id number]) 400 Anion gap 11 mmol/L Negative 5-14 PENDING 01-06-2 [Moles/Vol] mmol/L [facility] 020 N [facility] 17:30-0 ([id number]) 400 AST [Catalytic 23 U/L Negative 5-34 U/L PENDING -15-2 activity/Vol] [facility] 020 N [facility] 17:30-0 ([id number]) 400 Bacteria LM Ql LARGE Abnormal PENDING 2 (Urine sed) [facility] 020 N [facility] 17:33-0 ([id number]) 400 Basophils (Bld) 0.0 10*3/uL Negative 0.0-0.1 PENDING -15 -2 [#/Vol] 10*3/uL [facility] 020 N [facility] 17:30-0 ([id number]) 400 Basophils/100 WBC 0 % Negative 0-10 % PENDING 01-06 -2 (Bld) [facility] 020 N [facility] 17:30-0 ([id number]) 400 Bilirubin [Mass/Vol] 0.6 mg/dL Negative 0.1-1.0 PENDING 07 -15-2 mg/dL LOC[facility] 020 N [facility] 17:30-0 (83352) 400 Bilirubin Ql (U) Negative Invalid NEGATIVE PENDING Interpreta LOCATIO 020 tion Code N [facility] 17:33-0 (13429) 400 Calcium [Mass/Vol] 9.5 mg/dL Negative 8.5-10.1 PENDING 07-1 5-2 mg/dL LOC[facility]IO 020 N [facility] 17:30-0 ([id number]) 400 Calcium [Mass/Vol] 9.1 mg/dL Negative 8.5-10.1 PENDING 07-1 5-2 mg/dL LOCATIO 020 N [facility] 17:30-0 ([id number]) 400 Casts LM Ql (Urine NONE Invalid PENDING sed) Interpreta LOCATIO 020 tion Code N [facility] 17:33-0 ([id number]) 400 Chloride [Moles/Vol] 105 mmol/L Negative 98-107 PENDING 0 -15-2 mmol/L LOCATIO 020 [facility] 17:30-0 ([id number]) 400 Clarity (U) SL CLOUDY Invalid PENDING Interpreta LOCATIO 020 tion Code N [facility] 17:33-0 ([id number]) 400 CO2 [Moles/Vol] 25 mmol/L Negative 21-32 PENDING 01-06-2 mmol/L LOCATIO 020 N [facility] 17:30-0 ([id number]) 400 Color (U) YELLOW Invalid PENDING Interpreta LOCATIO 020 tion Code N [facility] 17:33-0 ([id number]) 400 Creatinine 0.85 mg/dL Negative 0.60-1.30 PENDING 01-06-2 [Mass/Vol] mg/dL LOC[facility]IO 020 N [facility] 17:30-0 ([id number]) 400 Creatinine and > Invalid PENDING Glomerular Interpreta LOCATIO 020 filtration tion Code N [facility] 17:30-0 rate.predicted panel ([id number]) 400 - Serum, Plasma or Blood Crystals LM Ql NONE Invalid PENDING (Urine sed) Interpreta LOCATIO 020 tion Code N [facility] 17:33-0 ([id number]) 400 Eosinophils (Bld) 0.3 10*3/uL Negative 0.0-0.3 PENDING [#/Vol] 10*3/uL LOCATIO 020 N [facility] 17:30-0 ([id number]) 400 Eosinophils/100 WBC 2 % Negative 0-10 % PENDING (Bld) LOC[facility]IO 020 N [facility] 17:30-0 ([id number]) 400 Epithelial 25-50 Abnormal PENDING cells.squamous LM Ql LOCATIO 020 (Urine sed) N [facility] 17:33-0 ([id number]) 400 Erythrocyte 12.9 % Negative 10.0-14.5 PENDING distribution width % LOCATIO 020 (RBC) [Ratio] N [facility] 17:30-0 ([id number]) 400 Glucose [Mass/Vol] 104 mg/dL Negative 70-105 PENDING 12-23 5-2 mg/dL LOC[facility]IO 020 N [facility] 17:30-0 ([id number]) 400 Glucose Auto test Negative Invalid NEGATIVE PENDING 01-06 strip Ql (U) Interpreta LOCATIO 020 tion Code N [facility] 17:33-0 ([id number]) 400 HCG.beta subunit (U) Negative Invalid NEGATIVE PENDING [Moles/Vol] Interpreta LOCATIO 020 tion Code N [facility] 17:33-0 (63909) 400 Hematocrit (Bld) 43 % Negative 35-52 % PENDING [Volume fraction] LOCATIO 020 N [facility] 17:30-0 ([id number]) 400 Hemoglobin (Bld) 14.0 g/dL Negative 11.5-16.0 PENDING [Mass/Vol] g/dL LOC[facility]IO 020 N [facility] 17:30-0 (55110) 400 Ketones Auto test Negative Invalid NEGATIVE PENDING 01-06 strip Ql (U) Interpreta LOCATIO 020 tion Code N [facility] 17:33-0 (03688) 400 Leukocyte esterase Negative Invalid NEGATIVE PENDING 12-23 5-2 Test strip Ql (U) Interpreta LOCATIO 020 tion Code N [facility] 17:33-0 ([id number]) 400 Lymphocytes (Bld) 2.8 10*3/uL Negative 1.0-4.0 PENDING [#/Vol] 10*3 LOCATIO 020 N [facility] 17:30-0 ([id number]) 400 Lymphocytes/100 WBC 25 % Negative 12-44 % PENDING (Bld) MAHI Clark [facility] 17:30-0 ([id number]) 400 MCH (RBC) [Entitic 30 pg Negative 25-34 pg PENDING 12-23 mass] [facility] 17:30-0 ([id number]) 400 MCHC (RBC) 32 g/dL Negative 32-36 g/dL PENDING [Mass/Vol] [facility]ardo [facility] 17:30-0 ([id number]) 400 MCV (RBC) [Entitic 91 Negative 80-99 PENDING 12-23 vol] [foz_us] MAHI Clark [facility] 17:30-0 ([id number]) 400 Monocytes (Bld) 1.1 10*3/uL High 0.0-1.0 PENDING 01-06 [#/Vol] 10*3 [facility] Eduardo [facility] 17:30-0 (45058) 400 Monocytes/100 WBC 10 % Negative 0-12 % PENDING 01-06 (Bld) [facility] 17:30-0 (18912) 400 Mucus Ql (Urine sed) MODERATE Abnormal PENDING 01-06 [facility]ardo [facility] 17:33-0 (69719) 400 Neutrophils (Bld) 6.9 10*3/uL Negative 1.8-7.8 PENDING [#/Vol] 10*3 [facility] 17:30-0 ([id number]) 400 Neutrophils/100 WBC 62 % Negative 42-75 % PENDING (Bld) LOCATIO Eduardo [facility] 17:30-0 ([id number]) 400 Nitrite Ql (U) Negative Invalid NEGATIVE PENDING Interpreta LOCATIO Eduardo tion Code [facility] 17:33-0 (31165) 400 pH (U) 5.5 [pH] Invalid 5-9 PENDING Interpreta LOCATIO 020 tion Code [facility] 17:33-0 (19570) 400 Platelet mean volume 10.7 High 7.4-10.4 PENDING (Bld) [Entitic vol] [foz_us] LOCATIO 020 N [facility] 17:30-0 (15402) 400 Platelets (Bld) 277 10*3/uL Negative 130-400 PENDING 01-06 [#/Vol] 10*3/uL [facility]IO 020 N [facility] 17:30-0 (33730) 400 Potassium 4.0 mmol/L Negative 3.6-5.0 PENDING [Moles/Vol] mmol/L LOCATIO 020 N S 17:30-0 ([id number]) 400 Protein [Mass/Vol] 7.8 g/dL Negative 6.4-8.2 PENDING 12-23 5-2 g/dL LOCATIO 020 N S 17:30-0 ([id number]) 400 Protein Ql (U) Negative Invalid NEGATIVE PENDING Interpreta LOCATIO 020 tion Code N [facility] 17:33-0 (43457) 400 RBC (Bld) [#/Vol] 4.75 10*6/uL Negative 4.35-5.85 PENDING 10*6/uL LOCATIO 020 N [facility] 17:30-0 (69412) 400 RBC LM.HPF (Urine NONE Invalid PENDING sed) [#/Area] Interpreta LOCATIO 020 tion Code N [facility] 17:33-0 (49835) 400 RBC Ql (U) Negative Invalid NEGATIVE PENDING Interpreta LOCATIO 020 tion Code N [facility] 17:33-0 (39796) 400 Sodium [Moles/Vol] 141 mmol/L Negative 135-145 PENDING mmol/L LOC[facility]IO 020 N [facility] 17:30-0 ([id number]) 400 Specific gravity (U) >= Invalid 1.016-1.02 PENDING 0 [Rel density] Interpreta 2 LOC[facility]IO 020 tion Code N [facility] 17:33-0 (37528) 400 Urea nitrogen 15 mg/dL Negative 7-18 mg/dL PENDING [Mass/Vol] LOCATIO 020 N S 17:30-0 (19843) 400 Urea 18 mg/mg Invalid PENDING 07-15-2 nitrogen/Creatinine Interpreta LOCATIO 020 [Mass ratio] tion Code N [facility] 17:30-0 ([id number]) 400 Urinalysis complete YES Invalid PENDING W Reflex Culture Interpreta LOCATIO 020 panel - Urine tion Code N [facility] 17:33-0 ([id number]) 400 Urobilinogen (U) 0.2 mg/dL Invalid < = 1.0 PENDING [Mass/Vol] Interpreta mg/dL LOC[facility]IO 020 tion Code N [facility] 17:33-0 (26714) 400 WBC (Bld) [#/Vol] 11.1 10*3/uL High 4.3-11.0 PENDING 10*3/uL LOCATIO 020 N [facility] 17:30-0 ([id number]) 400 WBC LM.HPF (Urine Invalid PENDING sed) [#/Area] Interpreta LOCATIO 020 tion Code N [facility] 17:33-0 ([id number]) 400 laboratory on 2017-01-09 Albumin BCG dye 4.4 Invalid 3.6-5.1 Not [Mass/Vol] Interpreta g/dL [facility] 017 tion Code le 09:20-0 ([id number]) 400 ALP [Catalytic 53 U/L Invalid 35-130 U/L Not activity/Vol] Interpreta [facility]ail[facility] 017 tion Code le 09:20-0 (78336) 400 ALT [Catalytic 27 U/L Invalid 6-45 U/L Not activity/Vol] Interpreta [facility] 017 tion Code le 09:20-0 ([id number]) 400 Anion gap 15 mmol/L High 6-14 Not [Moles/Vol] Avail[facility] 017 le 09:20-0 (34820) 400 AST [Catalytic 25 U/L Invalid 2-40 U/L Not activity/Vol] Interpreta [facility]ail[facility] 017 tion Code le 09:20-0 (83082) 400 Bilirubin [Mass/Vol] 0.9 mg/dL Invalid 0.2-1.2 Not Interpreta mg/dL [facility] 017 tion Code le 09:20-0 (37129) 400 Calcium [Mass/Vol] 9.7 mg/dL Invalid 8.3-10.4 Not - 8-2 Interpreta mg/dL [facility] 017 tion Code le 09:20-0 (24572) 400 Chloride [Moles/Vol] 105 mmol/L Invalid 95-114 Not 0 7-18-2 Interpreta mmol/L [facility] 017 tion Code le 09:20-0 (84349) 400 Cholesterol 227 mg/dL Invalid 100-240 Not 18-2 [Mass/Vol] Interpreta mg/dL [facility] 017 tion Code le 09:20-0 (65051) 400 Cholesterol in HDL 62 mg/dL Invalid 30-85 Not - 8-2 [Mass/Vol] Interpreta mg/dL [facility] 017 tion Code le 09:20-0 (36611) 400 Cholesterol in LDL 147 mg/dL High 0-100 Not 07-1 8-2 [Mass/Vol] mg/dL [facility] 017 le 09:20-0 (44873) 400 Cholesterol in VLDL 18 mg/dL Invalid 0-42 mg/dL Not 18-2 [Mass/Vol] Interpreta [facility] 017 tion Code le 09:20-0 (83054) 400 Cholesterol.total/Ch 3.7 {ratio} Invalid 3.7-6.7 Not 01-09-2 olesterol in HDL Interpreta Avail[facility] 017 [Mass ratio] tion Code le 09:20-0 (84692) 400 Creatinine 0.74 mg/dL Invalid 0.50-1.50 Not 18-2 [Mass/Vol] Interpreta mg/dL [facility] 017 tion Code le 09:20-0 (36067) 400 GFR/1.73 sq 83 mL/min/{1.73_m2} Invalid >59 Not 0 -18-2 M.predicted MDRD Interpreta mL/min/1.7 [facility] 017 (S/P/Bld) [Vol tion Code 3m2 le 09:20-0 rate/Area] (92663) 400 Globulin (S) 3.1 g/dL Invalid 2.3-3.5 Not 18-2 [Mass/Vol] Interpreta g/dL [facility] 017 tion Code le 09:20-0 (13209) 400 Glucose [Mass/Vol] 103 mg/dL Invalid 70-110 Not - 8-2 Interpreta mg/dL [facility] 017 tion Code le 09:20-0 (94802) 400 HCO3 (P) [Moles/Vol] 25 Invalid 22-33 Not 2 Interpreta mEq/L [facility] 017 tion Code le 09:20-0 (42978) 400 Osmolality Calc 289 Invalid 280-295 Not 01-09-2 [Osmolality] Interpreta [facility] 017 tion Code le 09:20-0 (50867) 400 Potassium 4.6 mmol/L Invalid 3.5-5.3 Not 01-09-2 [Moles/Vol] Interpreta mmol/L [facility] 017 tion Code le 09:20-0 (76966) 400 Protein [Mass/Vol] 7.5 g/dL Invalid 6.0-8.3 Not - 8-2 Interpreta g/dL [facility] 017 tion Code le 09:20-0 (03617) 400 Sodium [Moles/Vol] 140 mmol/L Invalid 134-148 Not Interpreta mmol/L [facility] 017 tion Code le 09:20-0 (75820) 400 Triglyceride 88 mg/dL Invalid 35-160 Not 01-09-2 [Mass/Vol] Interpreta mg/dL [facility] 017 tion Code le 09:20-0 (17538) 400 Urea nitrogen 13 mg/dL Invalid 5-25 mg/dL Not 01-09-2 [Mass/Vol] Interpreta [facility]ail[facility] 017 tion Code le 09:20-0 (35166) 400 Social History No Information Vital Signs The data below is from unstructured sources Vital Response Date/Time Temperature (Fahrenheit) 97.2 degree s F (97.6 - 99.5) 04/22/2015 5:48pm Temperature (Calculated Celsius) 36. 14700 degrees C (36.4 - 37.5) 04/22/2015 5:30pm [...] inches 04/22/2015 11:46am Height (Calculated Centimeters) 156. 754494 cm 04/22/2015 11:46am Weight (Pounds) 201 pounds 04/22/2015 11:46am Weight (Calculated Grams) 90923.067 gm 04/22/2015 11:46am Weight (Calculated Kilograms) 91.172 067 kilograms 04/22/2015 11:46am Calculated BMI 33.44 11:46am Functional Status The data below is from unstructured sourcesNo functional status results. Mental Status No Information Advance Directives Directive Response Recor ded Date/Time Advance Directives No 11:46am Health Care Power of Medical Care Manager No 04/22/15 11:46am Organ Donor No 04/22/15 11:46am Resuscitation Status Full Code 04/22/15 11:46am Additional Source Comments This clinical document has been generated using [employer] software that has been certified by the Office of the National Coordinator for Health Information Technology (ONC 15.99.04.3023.Diam.[id number]) and the National Committee for Marketing Automation Specialist (NCQA, as an eMeasure certified technology). FOR [...] BASED ON T HE PRIMARY CLINICAL RECORDS. [employer] provides no warranty or guara ntee of the accuracy or completeness of information in this document.The followi ng information is based on time limited clinical information
[2020-01-08] MEDS ORDERED: ceFAZolin INJECTION 2,000 MG in WATER (STERILE) FOR INJECTION 10 ML IV SCH (08:00)
[2020-01-08] MEDS ORDERED: metroNIDAZOLE 500MG/100ML IVPB 100 ML IV SCH (08:00)
[2020-01-08] MEDS ORDERED: ceFAZolin 2 GM IV Premixed 50 ML IV SCH (08:15)
--- NOTE | 2020-01-08 10:40 | Progress Note - Surgery ---
Subjective Date Seen by a Provider: Jan 08, 2020 Time Seen by a Provider: 10:38 Subjective/Events-last exam Doing well. Pain better now incisional pain. Pain controlled. Tolerating liquids. Denies n/v fever sweats chills shortness of breath or chest pain. Wanting to go home. Objective Exam Vital Signs Date Time Temp Pulse Resp B/P (MAP) Pulse Ox O2 Delivery O2 Flow Rate FiO2 01/08/20 08:31 36.2 66 18 102/66 (78) 91 Room Air 01/08/20 07:44 Room Air 01/08/20 06:37 36.4 01/08/20 04:31 36.4 67 17 112/72 (85) 93 Nasal Cannula 2.00 01/08/20 01:10 01/08/20 01:03 35.7 67 16 137/83 (101) 91 Room Air 01/08/20 00:45 Room Air 01/08/20 00:41 14 125/61 (82) 94 Room Air 01/08/20 00:35 OxyMask 5 01/08/20 00:30 16 134/62 (86) 99 OxyMask 5 01/08/20 00:29 OxyMask 8 01/08/20 00:18 14 147/77 (100) 92 OxyMask 10 01/08/20 00:07 36.6 18 179/92 (121) 92 OxyMask 10 01/08/20 00:07 OxyMask 10 01/07/20 22:45 36.9 69 17 159/90 (115) 98 Room Air 01/07/20 21:28 36.6 67 18 169/89 (115) 97 Room Air I & O 01/08/20 07:00 Intake Total 1250 ml Output Total 300 ml Balance 950 ml Capillary Refill : Less Than 3 SecondsLess Than 3 Seconds General Appearance: No Apparent Distress, WD/WN, Obese HEENT: PERRL/EOMI, Normal ENT Inspection Neck: Full Range of Motion, Normal Inspection, Non Tender, Supple Respiratory: Chest Non Tender, No Accessory Muscle Use, No Respiratory Distress Cardiovascular: Regular Rate, Rhythm, Normal Peripheral Pulses Gastrointestinal: normal bowel sounds, soft, tenderness (incisional c/d/i nor erythema) Extremity: Non Tender, No Calf Tenderness Neurologic/Psychiatric: Alert, Oriented x3, No Motor/Sensory Deficits, Normal Mood/Affect, nurse case management II-XII Norm as Tested Skin: Normal Color, Warm/Dry Lymphatic: No Adenopathy Results Lab Laboratory Tests 01/07/20 21:30: White Blood Count 11.1H, Red Blood Count 4.75, Hemoglobin 14.0, Hematocrit 43, Mean Corpuscular Volume 91, Mean Corpuscular Hemoglobin 30, Mean Corpuscular Hemoglobin Concent 32, Red Cell Distribution Width 12.9, Platelet Count 277, Mean Platelet Volume 10.7H, Neutrophils (%) (Auto) 62, Lymphocytes (%) (Auto) 25, Monocytes (%) (Auto) 10, Eosinophils (%) (Auto) 2, Basophils (%) (Auto) 0, Neutrophils # (Auto) 6.9, Lymphocytes # (Auto) 2.8, Monocytes # (Auto) 1.1H, Eosinophils # (Auto) 0.3, Basophils # (Auto) 0.0, Sodium Level 141, Potassium Level 4.0, Chloride Level 105, Carbon Dioxide Level 25, Anion Gap 11, Blood Urea Nitrogen 15, Creatinine 0.85, Estimat Glomerular Filtration Rate > 60, BUN/Creatinine Ratio 18, Glucose Level 104, Calcium Level 9.5, Corrected Calcium 9.1, Total Bilirubin 0.6, Aspartate Amino Transf (AST/SGOT) 23, Alanine Aminotr ansferase (ALT/SGPT) 31, Alkaline Phosphatase 60, Total Protein 7.8, Albumin 4.5 01/07/20 21:33: Urine Color YELLOW, Urine Clarity SL CLOUDY, Urine pH 5.5, Urine Specific [place] >=1.030, Urine Protein NEGATIVE, Urine Glucose (UA) NEGATIVE, Urine Ketones NEGATIVE, Urine Nitrite NEGATIVE, Urine Bilirubin NEGATIVE, Urine Urobilinogen 0.2, Urine Leukocyte Esterase NEGATIVE, Urine RBC (Auto) NEGATIVE, Urine RBC NONE, Urine WBC 0-2, Urine Squamous Epithelial Cells 25-50H, Urine Crystals NONE, Urine Bacteria LARGEH, Urine Casts NONE, Urine Mucus MODERATEH, Urine Culture Indicated YES, Urine Test NEGATIVE 01/07/20 23:20: Assessment/Plan Assessment/Plan Assessment/Plan acute appendicitis with appendicolith rlq abdominal pain s/p lap appendectomy doing well okay to [place] home Final Diagnosis acute appendicitis with appendicolith rlq abdominal pain s/p lap appendectomy Clinical Quality Measures DVT/VTE Risk/Contraindication: Risk Factor Score Per Nursin RFS Level Per Nursing on Admit: 3=High LAURITA MARTINEZ DO Jan 08, 2020 10:40
[2020-01-08] MEDS ORDERED: HYDR-4226 PO (10:42)
[2020-01-08] MEDS ORDERED: DOCU-143 PO (10:42)
--- NOTE | 2020-01-08 10:42 | Discharge Inst-Simple/Standard ---
Discharge Inst-Standard Discharge Medications New, Converted or Re-Newed RX: RX on Chart Patient Instructions/Follow Up Plan of Care/Instructions/FU: 2 weeks Leyla Activity as Tolerated: No Discharge Diet: Regular Diet Other Inst to Patient Follow up Appt: Make appointment for 2 week. Instructions: No lifting greater than 10 pounds. No strenuous activity. May shower in 24 hours, no tub bath or soaking. Use incentive spirometer at home as directed. No Smoking Skin/Wound Care: You have special glue over your incision that will fall off on it's own. Symptoms to Report: Appetite Changes, Extremity Discoloration, Numbness/Tingling, Swelling Increased, Bleeding Excessive, Eyesight Changes, Pain Increased, Urine Color Change, Constipation(Persistent), Fever over 101 degree F, Pain/Pressure in chest, Urinating Difficulty, Cough Up/Vomit Blood, Heart Beat Irreg/Pounding, Pain/Pressure in jaw, Vaginal Bleeding Increase, Cramps in feet or legs, Lightheadedness, Pain/Pressure in shoulder, Diarrhea(Persistent), Memory Changes Suddenly, Questions/Concerns, Weight gain consecutive days, Dizziness/Fainting, Nausea/Vomiting, Shortness of Breath, Weight gain over 2 pounds If questions or concerns contact your physician Or seek help at emergency department. LAURITA MARTINEZ DO Jan 08, 2020 10:42
--- NOTE | 2020-01-08 11:15 | NUR ---
RX AND INST AND VERBALIZED UNDERSTANDING. DC'D PER WC WITH .
--- NOTE | 2020-01-09 15:53 | Anesthesia-General Post-Op ---
General Patient Condition Mental Status/LOC: Same as Preop Cardiovascular: Satisfactory Nausea/Vomiting: Absent Respiratory: Satisfactory Pain: Controlled Complications: Absent Post Op Complications Complications None Follow Up Care/Instructions Patient Instructions None needed. Anesthesia/Patient Condition Patient Condition Patient was already discharged to home during post-op rounds this morning. She was doing well, no complaints, stable vital signs, no apparent adverse anesthesia problems per nursing staff prior to her discharge. MARI JONES DO Jan 09, 2020 15:53
== END 2020-01-08 11:15 | disposition home or self-care (01) ==
LOC: EDUNIT# 21:23 → ER 21:25 → SDC 21:55 → 4TH 22:52
PROVIDERS: ADMIT Surgery; ATTEND Surgery
DX: K35.80 Unspecified acute appendicitis (principal); I10 Essential (primary) hypertension; Z79.899 Other long term (current) drug therapy; J45.909 Unspecified asthma, uncomplicated; K58.0 Irritable bowel syndrome with diarrhea; Z11.2 Encounter for screening for other bacterial diseases; Z20.828 Contact with and (suspected) exposure to other viral communicable diseases
CPT/HCPCS: 44970; 74176; 80053; 81000; 84703; 85025; 87088; 88304; 96374; 99285; U0002; 36415; 87635

== ENCOUNTER → 2021-03-14 | Outpatient (CLI) | payer OTHER ==
[~2021-03-14] VITALS: Ht 155 cm; Wt 95.9 kg
[~2021-03-14] MED LIST changes: +ACETAMINOPHEN 500 MG TAB (TYLENOL) PO PRN; +CASIRIVIMAB/IMDEVIMAB 1,200 MG in NS (IVPB) 250 ML IV ONE; +DOCU-143 PO; +EPINEPHrine INJECTION 1 MG/ML AMP IM PRN; +HYDR-4226 PO; +ONDANSETRON 4 MG/2 ML (SDV) Z0FRAN IV PRN; +diphenhydrAMINE 50 MG/ML INJ (BENADRYL) IV PRN
[2021-03-14 12:35] VITALS: BP 161/93
[2021-03-14 12:40] VITALS: BP 161/93
[2021-03-14 12:50] VITALS: BP 161/93
[2021-03-14 13:11] VITALS: BP 130/81
[2021-03-14 13:54] VITALS: BP 133/86
== END ==
LOC: INFUSION 11:58
PROVIDERS: ATTEND Physician Assistant
DX: Z23 Encounter for immunization (principal); U07.1 COVID-19

== ENCOUNTER 2021-06-19 21:50 | Emergency (ER) | payer OTHER ==
[~2021-06-19] VITALS: Ht 154 cm; Wt 95.0 kg
[~2021-06-19 21:50] MED LIST changes: -ACETAMINOPHEN 500 MG TAB (TYLENOL) PO PRN; -CASIRIVIMAB/IMDEVIMAB 1,200 MG in NS (IVPB) 250 ML IV ONE; -EPINEPHrine INJECTION 1 MG/ML AMP IM PRN; -ONDANSETRON 4 MG/2 ML (SDV) Z0FRAN IV PRN; -diphenhydrAMINE 50 MG/ML INJ (BENADRYL) IV PRN
--- NOTE | 2021-06-19 22:23 | ED General ---
General Chief Complaint: Cough/Cold/Flu Symptoms Stated Complaint: COUGH / SORE THROAT Source of Information: Patient Exam Limitations: No Limitations (HIRO PÉREZ APRN) History of Present Illness Date Seen by Provider: Jun 19, 2021 Time Seen by Provider: 22:22 Initial Comments Yes sore throat headache nonproductive cough x3 days no fevers Covid vaccinated Timing/Duration: 2-3 Days Severity: Moderate Associated Systoms: Cough, Headaches (HIRO PÉREZ APRN) Allergies and Home Medications Allergies Coded Allergies: NKANo Known Allergies (Verified Allergy, Unknown, 12/06/05) Patient Home Medication List Home Medication List Reviewed: Yes (HIRO PÉREZ APRN) Atenolol (Atenolol) 50 Mg Tablet, 50 MG PO DAILY, (Reported) Entered as Reported by: RAHEEM SINGH on 04/20/15 0907 Docusate Sodium (Colace) 100 Mg Capsule, 100 MG PO BID Prescribed by: LAURITA MARTINEZ on 01/08/20 1042 Hydrocodone/Acetaminophen (Hydrocodone/Acetaminophen 5 MG/325 MG TAB) 1 Each Tablet, 1 TAB PO Q4-6HR Prescribed by: LAURITA MARTINEZ on 01/08/20 1042 Review of Systems Review of Systems Constitutional: see HPI EENTM: see HPI Respiratory: see HPI, cough Cardiovascular: no symptoms reported Genitourinary: no symptoms reported Musculoskeletal: no symptoms reported Skin: no symptoms reported Psychiatric/Neurological: No Symptoms Reported Hematologic/Lymphatic: No Symptoms Reported (HIRO PÉREZ APRN) Past Umlrcfx-Azlupi-Xcewcv Hx Past Medical History Surgeries: Yes (right wrist fx, ) Gallbladder Respiratory: Yes (mild asthma) Asthma Currently Using CPAP: No Currently Using BIPAP: No Cardiac: Yes Neurological: Yes (had seizure when she was a child, not sure if they were febrile related) Gastrointestinal: Yes Gall Bladder Disease Musculoskeletal: No Endocrine: No Cancer: No Psychosocial: No Integumentary: No Blood Disorders: No (HIRO PÉREZ APRN) Family Medical History Cardiovascular disease 19 FATHER G8 BROTHER G8 BROTHER G8 SISTER G8 SISTER Diabetes mellitus 19 MOTHER Hypertension 19 FATHER G8 BROTHER G8 BROTHER G8 SISTER G8 SISTER Myocardial infarction 19 FATHER No Pertinent Family Hx (HIRO PÉREZ APRN) Physical Exam Vital Signs Vital Signs - First Documented 06/19/21 22:20 Temp 38.4 Pulse 101 Resp 16 B/P (MAP) 152/109 (123) Pulse Ox 93 O2 Delivery Room Air (PILO REYES MD) Vital Signs Capillary Refill : (HIRO PÉREZ APRN) Height, Weight, BMI Height: 5'1.50" Weight: 201lbs. oz. 91.019177vl; 39.95 BMI Method: General Appearance: No Apparent Distress, WD/WN, Other Eyes: Bilateral Eye Normal Inspection HEENT: PERRL/EOMI, TMs Normal Neck: Full Range of Motion, Normal Inspection Respiratory: No Accessory Muscle Use, No Respiratory Distress Cardiovascular: Regular Rate, Rhythm, Normal Peripheral Pulses Gastrointestinal: Normal Bowel Sounds, Non Tender, Soft Extremity: Normal Capillary Refill, Normal Inspection Neurologic/Psychiatric: Alert, Oriented x3 Skin: Normal Color, Warm/Dry (HIRO PÉREZ APRN) Progress/Results/Core Measures Suspected Sepsis SIRS Temperature: Pulse: Respiratory Rate: Blood Pressure / Mean: (HIRO PÉREZ APRN) Results/Orders Lab Results Laboratory Tests Test 06/19/21 22:14 06/19/21 22:26 Range/Units Influenza Type A (RT-PCR) Not Detected Not Detecte Influenza Type B (RT-PCR) Not Detected Not Detecte SARS-CoV-2 RNA (RT-PCR) Not Detected Not Detecte Group A Streptococcus Screen NEGATIVE NEGATIVE (PILO REYES MD) Micro Results Microbiology 06/19/21 Throat Culture - Final, Complete No Beta Strep isolated (PILO REYES MD) My Orders Orders - PILO REYES MD Covid 19 Inhouse Test (06/19/21 21:51) Influenza A And B By Pcr (06/19/21 21:51) (PILO REYES MD) Vital Signs/I&O 06/19/21 06/19/21 06/19/21 06/19/21 22:20 22:25 22:29 22:30 Temp 38.4 38.4 38.2 38.2 Pulse 101 101 Resp 16 18 B/P (MAP) 152/109 (123) 152/109 Pulse Ox 93 93 O2 Delivery Room Air Room Air 06/19/21 22:51 Temp 38.2 Pulse 95 Resp 16 B/P (MAP) 162/101 Pulse Ox 94 O2 Delivery Room Air (PILO REYES MD) Vital Signs/I&O Capillary Refill : (HIRO PÉREZ APRN) Departure Impression Primary Impression: Viral syndrome Disposition: 01 HOME, SELF-CARE Condition: Stable Departure-Patient Inst. Decision time for Depature: 22:32 (HIRO PÉREZ APRN) Referrals: CARLOS GARCIA MD (PCP/Family) Primary Care Physician Patient Instructions: Viral Syndrome (DC) Add. Discharge Instructions: Tylenol and ibuprofen for pain control. Call appear later to get your swab results. Return to ER for any worsening. All discharge instructions reviewed with patient and/or family. Voiced understanding. Work/School Note: Work Release Form Date Seen in the Emergency Department: Jun 19, 2021 Return to Work: Jun 22, 2021 ATTENDING PHYSICIAN NOTE: I was physically present as attending physician in the emergency department during the care of this patient, but I was not directly involved in the decision making or delivery of care for this patient. (PILO REYES MD) HIRO PÉREZ APRN Jun 19, 2021 22:23 PILO REYES MD Jun 21, 2021 18:36
[2021-06-19] MEDS ORDERED: ACETAMINOPHEN 500 MG TAB (TYLENOL) PO ONE (22:30)
[2021-06-19] MEDS ORDERED: IBUPROFEN 800 MG (MOTRIN) TAB PO ONE (22:30)
[2021-06-19 22:51] VITALS: BP 162/101
--- NOTE | 2021-06-19 22:52 | Diagnostic Imaging Report ---
INDICATION: Cough and shortness of breath. EXAMINATION: Portable chest at 10:38 PM. Heart size and pulmonary vascularity are normal. Lungs are clear. There are no effusions or pneumothoraces. IMPRESSION: Negative chest. Dictated by: Dictated on workstation # [id number]
== END 2021-06-19 22:52 | disposition home or self-care (01) ==
LOC: EDUNIT# 21:50 → ER 21:51
DX: B34.9 Viral infection, unspecified (principal); J45.909 Unspecified asthma, uncomplicated; Z20.822 Contact with and (suspected) exposure to COVID-19
CPT/HCPCS: 71045; 87430; 87636